=== PATIENT | female | born 1950 | race Caucasian/White ===

== ENCOUNTER 2022-01-04 08:16 | Emergency (ER) | payer MEDICARE, OTHER ==
[~2022-01-04] VITALS: Ht 160 cm; Wt 86.4 kg
[2022-01-04 08:27] VITALS: BP 118/43
[2022-01-04] MEDS ORDERED: HYDR-3972 PO (10:11)
[2022-01-04] MEDS ORDERED: CEPH-585 PO (10:11)
== END 2022-01-04 11:01 | disposition home or self-care (01) ==
LOC: ER 08:18
DX: L03.115 Cellulitis of right lower limb (principal)
CPT/HCPCS: 73630; 99283